=== PATIENT | male | born 1975 | race Caucasian/White ===

== ENCOUNTER 2024-07-21 13:05 | Inpatient (IN) | payer MEDICARE, SELFPAY ==
[2024-07-21] VITALS (12 sets, daily range): BP systolic 114–155; BP diastolic 64–112; PULSE 105–136; RESP 16–25; TEMP 36.6–37.1; O2SAT 96–100; BMI 32.3
--- NOTE | ~2024-07-21 | CT_ITS ---
EXAMINATION: CTA chest PE protocol DATE: 07/21/2024 15:30 INDICATION: Chest pain. TECHNIQUE: Computed tomography (CT) pulmonary angiogram of the chest was performed with 100 mL Omnipa que-350 intravenous contrast. Additional 3D reconstructions utilizing coronal maximum intensity proje ction (MIP) were performed. Automated exposure control and iterative reconstruction technique were em ployed. The dose-length product was 534.23 mGy-cm. COMPARISON: None FINDINGS: There is a saddle embolism which extends across the midline into the bilateral upper lobar pulmonary arteries and the right apical segmental and left apical and posterior segmental pulmonary arteries as well as also extending into the lingular pulmonary artery and superior lingular segmental pulmonary artery. Separate lumbar emboli are seen in the bilateral lower lobar pulmonary arteries extending int o multiple basilar segmental and subsegmental pulmonary arteries. These all appear nonocclusive with contrast extending peripherally beyond the pulmonary emboli. There is dependent atelectasis in bilate ral lower lobes. No pneumonia, pulmonary edema or pleural effusion. Small peripheral region of consol idation at the lateral basilar left lower lobe could represent a small pulmonary infarct versus addit ional atelectasis. Heart size is normal. No leftward bowing of the ventricular septum to suggest righ t heart strain. No pericardial effusion. Thoracic aorta is normal in caliber with no dissection. No p athologically enlarged thoracic lymphadenopathy. Mild bilateral gynecomastia. Visualized upper abdome n is unremarkable. Moderate thoracic spondylosis with chronic appearing mild likely physiologic anter ior wedging at T12. IMPRESSION: 1. Extensive bilateral pulmonary emboli including a saddle embolism but without evident right heart s train. Dr. Somers discussed these findings with Dr. Nolan at 3:40 PM. 2. Small region of consolidation at the lateral basilar segment of the left lower lobe which could re present atelectasis, pulmonary infarct or less likely pneumonia. Reviewed, dictated and finalized at location A. IMPRESSION: 1. Extensive bilateral pulmonary emboli including a saddle embolism but without evident right heart strain. Dr. Somers discussed these findings with Dr. Anisha patel at 3:40 PM. 2. Small region of consolidation at the lateral basilar segment of the left low er lobe which could represent atelectasis, pulmonary infarct or less likely pne umonia.
--- NOTE | ~2024-07-21 | US_ITS ---
RIGHT LOWER EXTREMITY VENOUS ULTRASOUND Ordering provider: Daniela Nolan III, DO History: . right leg pain . Comparison: None. FINDINGS: --COMMON FEMORAL: Patent and free of thrombus. Normal compressibility, phasic flow and augmentation. --PROXIMAL SUPERFICIAL FEMORAL: Patent and free of thrombus. Normal compressibility, phasic flow and augmentation. --DISTAL SUPERFICIAL FEMORAL: Patent and free of thrombus. Normal compressibility, phasic flow and au gmentation. --POPLITEAL: Thrombosed. --POSTERIOR TIBIAL: Thrombosed --: Pneumonia: Thrombosed. IMPRESSION: deep vein thrombosis. Physician: Daniela Nolan III, DO Was notified with the result of the patient at 4:00 PM on July 21, 2024 Reviewed, dictated and finalized at location A.
--- NOTE | 2024-07-21 13:14 | ECG_ITS ---
Test Date: 2024-07-21 13:38:35 Measurements Intervals [place] Rate: 124 P: 47 SD: 104 QRS: 14 QRSD: 106 T: 26 QT: 290 QTc: 417 Interpretive Statements SINUS TACHYCARDIA WITH SHORT SD INTERVAL INCOMPLETE RIGHT BUNDLE BRANCH BLOCK [90+ ms QRS DURATION, TERMINAL R IN V1/V2, 40+ ms S IN I/aVL/V4/V5/V6] ABNORMAL RHYTHM ECG No previous ECG available for comparison Electronically Signed On 07-21-2024 18:11:44 CDT by Jaja Adams
--- NOTE | 2024-07-21 13:16 | ED.LOWEXIN ---
HPI - Extremity Injury (Lower) General Chief Complaint: Extremity Injury, Lower Stated Complaint: R leg pain Time Seen by Provider: 07/21/24 13:07 History of Present Illness HPI Narrative: Pt presents with right leg pain and left lateral chest pain for a couple of days. Pt denies injury. Pt denies SOB. Pt has history of PE but is not taking blood thinners any longer. Pt denies fever or cough. Related Data Allergies Allergy/AdvReac Type Severity Reaction Status Date / Time cefuroxime Allergy Intermediate Rash Verified 07/21/24 15:11 Sulfa (Sulfonamide Allergy Intermediate Rash Verified 07/21/24 15:11 Antibiotics) Review of Systems Review of Systems: All systems reviewed & are unremarkable except as noted in HPI and below Exam Const: General: healthy appearing and no acute distress Nutritional Appearance: well nourished Orientation/consciousness: patient oriented x3 Limitations: no limitations Chest: Chest palpation & inspection: normal inspection of the chest and no tenderness Resp: Effort & Inspection: normal respiratory effort Auscultation: clear to auscultation bilaterally Cardio: Rate: tachycardic Rhythm: regular rhythm GI: GI Palp: Yes Soft to palpation and No Tenderness to palpation present (GI) Auscultation: normal bowel sounds Back/Spine/Pelvis: Back: no CVA tenderness Skin: General skin exam: normal color Rashes: no rashes Wounds: no wounds Neuro: General: patient oriented x3, moves all extremities and no focal motor deficits Cranial nerves: Yes Nystagmus not present Speech: normal speech Extrem: Other: tender right calf to palpation Psych: Mental Status: mental status grossly normal Affect: normal affect Attitude: cooperative Course Vital Signs Vital signs: Vital Signs Temperature 97.9 F 07/21/24 13:17 Pulse Rate 136 H 07/21/24 13:17 Respiratory Rate 18 07/21/24 13:17 Blood Pressure 155/112 H 07/21/24 13:17 Pulse Oximetry 96 07/21/24 13:17 Oxygen Delivery Room Air 07/21/24 13:17 Temperature 97.9 F 07/21/24 13:17 Pulse Rate 109 H 07/21/24 16:16 Respiratory Rate 25 H 07/21/24 16:16 Blood Pressure 134/90 07/21/24 16:16 Pulse Oximetry 98 07/21/24 16:16 Oxygen Delivery Room Air 07/21/24 13:17 MDM - Extremity Injury (Lower) MDM Narrative Medical decision making narrative: With PE history and lack of blood thinner with leg pain and tachycardia will need to rule out dvt and PE with labs alonzo doppler and CTA chest. Pt has large saddle PE but with some flow and no signs of right heart strain. trop is neg. Will hearinize. discussed with Lesli Loyola and agrees to admit. Lab Data 07/21/24 13:34 07/21/24 14:45 Labs: Lab Results 07/21/24 07/21/24 07/21/24 Range/Units 13:34 13:34 14:45 WBC 13.1 H (4.5-10.0) K/mm3 RBC 5.83 (4.6-6.20) M/mm3 Hgb 18.7 H (14.0-18.0) g/dL Hct 53.9 H (42.0-52.0) % MCV 92.5 (80-100) fl MCH 32.1 (26-34) pg MCHC 34.7 (32-36) g/dl RDW 13.7 (11.5-14.5) % Plt Count 250 (150-375) k/mm3 MPV 9.0 (7.4-10.4) fl Immature Gran % (Auto) 0.7 H (0-0.5) % Neut % (Auto) 72.8 (45.5-73.1) % Lymph % (Auto) 16.6 L (18.3-44.2) % [place] % (Auto) 8.3 (2.6-8.5) % Eos % (Auto) 0.9 (0-4.4) % Baso % (Auto) 0.7 (0.2-1.2) % Lymph # (Auto) 2.18 (0.9-3.2) K/mm3 [place] # (Auto) 1.1 H (0.1-0.6) K/mm3 Eos # (Auto) 0.1 (0-0.3) K/mm3 Baso # (Auto) 0.1 (0.0-0.1) K/mm3 Abs Immat Gran (auto) 0.09 H (0.00-0.031) K/mm3 Absolute Neuts (auto) 9.5 H (1.3-6.7) K/mm3 Absolute Nucleated RBC 0.000 (0.0-0.012) K/mm3 Nucleated RBC % 0.0 (0.0-0.2) % PT 13.5 (11.1-14.7) Seconds INR 1.0 APTT Cancelled 29.9 D-Dimer 6.83 H (<0.48) ug/mL Sodium 138 (137-145) mmol/L Potassium 3.9 (3.4-5.0) mmol/L Chloride 104 (98-107) mmol/L Carbon Dioxide 24 (22-30) mmol/L Anion Gap 10 (4-12) mmol/L BUN 15 (9-20) mg/dL Creatinine 0.79 (0.7-1.3) mg/dL Estim Creat Clear Calc 115 ml/min Estimated GFR > 60 (59 - ) Glucose 100 (65-110) mg/dL Calcium 9.2 (8.4-10.2) mg/dL Total Bilirubin 0.6 (0.2-1.3) mg/dL AST 26 (17-59) U/L ALT 29 (6-50) U/L Alkaline Phosphatase 58 (38-126) U/L Troponin I < 0.012 (0.000-0.034) ng/mL Total Protein 8.0 (6.3-8.2) g/dL Albumin 4.3 (3.5-5.1) g/dL Critical Care Time Critical Care Time Critical Care Time: Yes Total Critical Care Time: 35 Discharge Plan Discharge Clinical Impression: Pulmonary embolism, DVT (deep venous thrombosis) Patient Disposition: Still a Patient Condition: Critical
[2024-07-21 13:50] LABS: Basophils Absolute Auto 0.1 K/mm3 (0.0-0.1); Basophils Percent Auto 0.7 % (0.2-1.2); Eosinophils Absolute Auto 0.1 K/mm3 (0-0.3); Eosinophils Percent Auto 0.9 % (0-4.4); Hematocrit 53.9 % (42.0-52.0); Hemoglobin 18.7 g/dL (14.0-18.0); Immature Granulocyte Absolute 0.09 K/mm3 (0.00-0.031); Immature Granulocyte Percent A 0.7 % (0-0.5); Lymphocytes Absolute Auto 2.18 K/mm3 (0.9-3.2); Lymphocytes Percent Auto 16.6 % (18.3-44.2); Mean Corpuscular HGB Conc 34.7 g/dl (32-36); Mean Corpuscular Hemoglobin 32.1 pg (26-34); Mean Corpuscular Volume 92.5 fl (80-100); Monocytes Absolute Auto 1.1 K/mm3 (0.1-0.6); Monocytes Percent Auto 8.3 % (2.6-8.5); Neutrophils Absolute Auto 9.5 K/mm3 (1.3-6.7); Neutrophils Percent Auto 72.8 % (45.5-73.1); Platelet Count Result 250 k/mm3 (150-375); Red Blood Count 5.83 M/mm3 (4.6-6.20); Red Cell Distribution Width 13.7 % (11.5-14.5); White Blood Count 13.1 K/mm3 (4.5-10.0)
[2024-07-21 14:03] LABS: Prothrombin Time 13.5 Seconds (11.1-14.7)
[2024-07-21 14:04] LABS: Partial Thromboplastin Time 29.9 Seconds (22.3-36.8)
[2024-07-21 14:13] LABS: D Dimer 6.83 ug/mL (<0.48)
[2024-07-21 14:33] LABS: Troponin I < 0.012 ng/mL (0.000-0.034)
[2024-07-21 15:04] LABS: Alanine Aminotransferase 29 U/L (6-50); Albumin Level 4.3 g/dL (3.5-5.1); Alkaline Phosphatase 58 U/L (38-126); Anion Gap 10 mmol/L (4-12); Aspartate Amino Transferase 26 U/L (17-59); Bilirubin,Total 0.6 mg/dL (0.2-1.3); Blood Urea Nitrogen 15 mg/dL (9-20); Calcium 9.2 mg/dL (8.4-10.2); Carbon Dioxide 24 mmol/L (22-30); Chloride 104 mmol/L (98-107); Estimated CRCL calculation 115 ml/min; Estimated Glomerular Filt Rate > 60; Glucose 100 mg/dL (65-110); Potassium 3.9 mmol/L (3.4-5.0); Sodium 138 mmol/L (137-145)
--- NOTE | 2024-07-21 15:08 | PC.NURSE ---
CT notified that pt. is ready and there is an extra green top at bedside for them.
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
[2024-07-21] MEDS: HEPARIN SOD/D5W 100 UNITS/ML 25,000 UNITS/250 ML BAG 17.51 UNITS IV CONT (16:00)
[2024-07-21] MEDS: HEPARIN SODIUM 5,000 UNITS/ML VIAL 8000 UNITS IV PUSH (16:00)
--- NOTE | 2024-07-21 16:10 | PC.NURSE ---
Dr. Nolan at bedside updating pt. and answering pt. questions.
[2024-07-21] MEDS: HEPARIN SOD/D5W 100 UNITS/ML 25,000 UNITS/250 ML BAG 14 UNITS IV CONT (16:12)
--- NOTE | 2024-07-21 16:15 | ECG_ITS ---
Test Date: 2024-07-21 16:30:20 Measurements Intervals [place] Rate: 110 P: 56 NE: 132 QRS: 13 QRSD: 106 T: 16 QT: 317 QTc: 429 Interpretive Statements SINUS TACHYCARDIA POSSIBLE LEFT ATRIAL ENLARGEMENT [-0.1mV P-WAVE IN V1/V2] INCOMPLETE RIGHT BUNDLE BRANCH BLOCK [90+ ms QRS DURATION, TERMINAL R IN V1/V2, 40+ ms S IN I/aVL/V4/V5/V6] ABNORMAL RHYTHM ECG Compared to ECG 07/21/2024 13:38:35 Short NE interval no longer present Electronically Signed On 07-21-2024 18:33:20 CDT by Jaja Adams
[2024-07-21] MEDS: HYDROcodone/acetaminophen (*CRX) 5-325 MG TABLET 1 TAB PO ×2 (16:31→22:07)
[2024-07-21] MEDS: NICOTINE (*PBKC) 21 MG PATCH 1 PATCH TRANSDERM (16:33)
--- NOTE | 2024-07-21 16:47 | PC.NURSE ---
Dietary called and dinner tray ordered. Tray to be sent to room 213.
[2024-07-21 17:11] LABS: Troponin I < 0.012 ng/mL (0.000-0.034)
--- NOTE | 2024-07-21 17:27 | PC.NURSE ---
Patient arrived. Telemetry applied. Heparin drip confirmed at 14 ml/hr. Admission completed.
[2024-07-21 22:12] LABS: Prothrombin Time 13.5 Seconds (11.1-14.7)
[2024-07-21 22:13] LABS: Partial Thromboplastin Time 61.2 Seconds (22.3-36.8)
[2024-07-21] MEDS: diphenhydrAMINE HCl CAP 25 MG CAPSULE PO (22:38)
[2024-07-21] MEDS: HEPARIN SODIUM 5,000 UNITS/ML VIAL 3000 UNITS IV PUSH (22:38)
[2024-07-22] VITALS (18 sets, daily range): BP systolic 105–141; BP diastolic 59–86; PULSE 89–109; RESP 16–24; TEMP 36.7–37.3; O2SAT 93–100
--- NOTE | 2024-07-22 | ECHO_ITS ---
Patient Info Name: Azael Ramirez Age: 48 years : 1975 Gender: Male Ht: 68 in Wt: 212 lbs BSA: 2.18 m2 HR: 82 bpm BP: 126 / 81 mmHg Heart Rhythm: Sinus Rhythm Technical Quality: Fair Exam Date: 07/22/2024 1:42 PM Patient Status: I Admit Date: 07/21/2024 Exam Type: CA echo doppler color flow Complete two-dimensional, color flow and Doppler transthoracic echocardiogram is performed. Staff Referring Physician: Daniela Nolan III Sanitation Associate: Heena Fulton Attending Provider: Vince Aaron Summary 1. Complete two-dimensional, color flow and Doppler transthoracic echocardiogram is performed. 2. There is normal biventricular size and systolic function. 3. There are no significant valvular abnormalities. Left Ventricle The left ventricle is normal in size and systolic function. The left ventricular ejection fraction is visually estimated to be 60-65%. Right Ventricle The right ventricle is normal in size and systolic function. Left Atria The left atrium is normal size. Right Atria The right atrium is normal size. Atrial Septum The atrial septum is not well visualized. Aortic Valve The aortic valve is trileaflet and opens well. There is no aortic regurgitation. Pulmonic Valve The pulmonic valve is not well visualized. There is no color Doppler evidence of pulmonic valve regurgitation. Mitral Valve The mitral valve opens well. There is no mitral regurgitation. Tricuspid Valve The tricuspid valve is grossly normal. The insufficient tricuspid regurgitation to estimate the pulmonary pressures. Pericardium/Pleural Pericardium is normal in appearance with no evidence for significant pericardial effusion. Inferior Vena Cava The inferior vena cava is not well visualized. Aorta The aortic root at the level of the sinus of Valsalva measures 2.9 cm in diameter. Left Ventricular Outflow Tract Name Value Normal LVOT 2D LVOT Diameter 2.4 cm LVOT Doppler LVOT Peak Velocity 82 cm/s LVOT Peak Gradient 3 mmHg LVOT Mean Gradient 1 mmHg LVOT VTI 13 cm LVOT VTI/AV VTI Ratio 0.8 LVOT Stroke Volume 59 ml LVOT CO 5.5 l/min LVOT CI 2.5 l/min/m2 Pulmonic Valve Name Value Normal RVOT Doppler RVOT Peak Velocity 51 cm/s RVOT Peak Gradient 1 mmHg PV Doppler PV Peak Velocity 82 cm/s PV Peak Gradient 3 mmHg Mitral Valve Name Value Normal MV Diastolic Function MV E Peak Velocity 48 cm/s MV A Peak Velocity 48 cm/s MV E/A 1.0 MV Decel Time (PW) 169 ms MV Annular TDI MV E/e' (Septal) 7.6 MV E/e' (Lateral) 4.9 MV E/e' (Average) 6.3 Tricuspid Valve Name Value Normal TV Annular TDI TV Lateral Keeley s' Velocity 11.4 cm/s >=9.5 Aortic Valve Name Value Normal AV Doppler AV Peak Velocity 89 cm/s AV Peak Gradient 3 mmHg AV Mean Gradient 2 mmHg AV VTI 15 cm AV Area (Cont Eq VTI) 3.8 cm2 >=3.0 AV Area (Cont Eq Giorgi) 4.2 cm2 AV DI (Giorgi) 0.92 AV Regurgitation 2D LVOT Area 4.6 cm2 Ventricles Name Value Normal LV Dimensions 2D/MM IVS Diastolic Thickness (2D) 1.0 cm 0.6-1.0 LVID Diastole (2D) 4.9 cm 4.2-5.8 LVIW Diastolic Thickness (2D) 1.1 cm 0.6-1.0 LVID Systole (2D) 3.5 cm 2.5-4.0 LVOT Diameter 2.4 cm LV Mass (2D Cubed) 193.21 g 88.00-224.00 LV Mass Index (2D Cubed) 89 g/m2 49-115 Relative Wall Thickness (2D) 0.43 <=0.42 LV Fractional Shortening/Ejection Fraction 2D/MM LV Fractional Shortening (2D) 28 % 25-43 LV EF (2D Teichholz) 55 % LV Diastolic Volume (4C MOD) 133 ml LV EF (4C MOD) 61 % LV Diastolic Volume (2C MOD) 120 ml LV EF (2C MOD) 61 % LV Diastolic Volume (BP MOD) 128 ml 62-150 LV Diastolic Volume Index (BP MOD) 59 ml/m2 34-74 LV Systolic Volume (BP MOD) 51 ml 21-61 LV Systolic Volume Index (BP MOD) 23 ml/m2 11-31 LV EF (BP MOD) 60 % 52-72 LV Diastolic Length (4C) 8.4 cm LV Systolic Length (4C) 6.9 cm LV Stroke Volume (4C MOD) 81 ml Atria Name Value Normal LA Dimensions LA Volume (4C A-L) 39 ml LA Volume (BP A-L) 45 ml RA Dimensions RA Systolic Major Plummer Length (4C) 4.4 cm 2.1-2.7 RA Area (4C) 12.9 cm2 <=18.0 Report Signatures
[2024-07-22] MEDS: levoFLOXacin 750 MG/D5W 150 ML 750 MG/150 ML BAG 100 MG IVPB (00:13)
[2024-07-22] MEDS: guaiFENesin/DEXTROMETHORPHAN 10 ML UDC PO ×5 (00:14→21:41)
[2024-07-22 05:05] LABS: Basophils Absolute Auto 0.1 K/mm3 (0.0-0.1); Basophils Percent Auto 0.7 % (0.2-1.2); Eosinophils Absolute Auto 0.2 K/mm3 (0-0.3); Hematocrit 50.4 % (42.0-52.0); Lymphocytes Absolute Auto 2.37 K/mm3 (0.9-3.2); Lymphocytes Percent Auto 22.7 % (18.3-44.2); Mean Corpuscular HGB Conc 33.7 g/dl (32-36); Mean Corpuscular Hemoglobin 31.7 pg (26-34); Mean Platelet Volume 8.9 fl (7.4-10.4); Monocytes Absolute Auto 0.9 K/mm3 (0.1-0.6); Neutrophils Absolute Auto 6.8 K/mm3 (1.3-6.7); Neutrophils Percent Auto 64.6 % (45.5-73.1); Platelet Count Result 243 k/mm3 (150-375); Red Blood Count 5.36 M/mm3 (4.6-6.20); Red Cell Distribution Width 13.7 % (11.5-14.5); White Blood Count 10.5 K/mm3 (4.5-10.0)
[2024-07-22 05:20] LABS: Anion Gap 8 mmol/L (4-12); Blood Urea Nitrogen 14 mg/dL (9-20); Calcium 8.7 mg/dL (8.4-10.2); Carbon Dioxide 26 mmol/L (22-30); Chloride 103 mmol/L (98-107); Estimated CRCL calculation 141 ml/min; Estimated Glomerular Filt Rate > 60; Glucose 101 mg/dL (65-110); Potassium 3.9 mmol/L (3.4-5.0); Sodium 137 mmol/L (137-145)
[2024-07-22 05:22] LABS: Partial Thromboplastin Time 90.9 Seconds (22.3-36.8)
[2024-07-22] MEDS: HYDROcodone/acetaminophen (*CRX) 5-325 MG TABLET 1 TAB PO ×2 (08:24→17:36)
[2024-07-22] MEDS: DOCUSATE SODIUM 100 MG CAPSULE PO ×2 (08:25→17:32)
[2024-07-22] MEDS: NICOTINE (*PBKC) 21 MG PATCH 1 PATCH TRANSDERM (08:25)
[2024-07-22] MEDS: HEPARIN SOD/D5W 100 UNITS/ML 25,000 UNITS/250 ML BAG 16 UNITS IV CONT (08:34)
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
[2024-07-22] MEDS: HEPARIN SODIUM 5,000 UNITS/ML VIAL 6500 UNITS IV PUSH (14:45)
[2024-07-22] MEDS: diphenhydrAMINE HCl CAP 25 MG CAPSULE PO (17:37)
[2024-07-22 21:10] LABS: Partial Thromboplastin Time 81.8 Seconds (22.3-36.8)
[2024-07-22] MEDS: HEPARIN SOD/D5W 100 UNITS/ML 25,000 UNITS/250 ML BAG 18 UNITS IV CONT (22:46)
[2024-07-23] VITALS (12 sets, daily range): BP systolic 116–133; BP diastolic 70–85; PULSE 84–124; RESP 16–20; TEMP 36.8–37; O2SAT 95–98
[2024-07-23] MEDS: guaiFENesin/DEXTROMETHORPHAN 10 ML UDC PO ×4 (00:05→11:52)
[2024-07-23] MEDS: levoFLOXacin 750 MG/D5W 150 ML 750 MG/150 ML BAG 100 MG IVPB (00:05)
[2024-07-23 05:03] LABS: Hematocrit 47.1 % (42.0-52.0); Mean Corpuscular Hemoglobin 31.9 pg (26-34); Mean Corpuscular Volume 93.8 fl (80-100); Mean Platelet Volume 8.9 fl (7.4-10.4); Platelet Count Result 265 k/mm3 (150-375); Red Blood Count 5.02 M/mm3 (4.6-6.20); Red Cell Distribution Width 13.6 % (11.5-14.5); White Blood Count 9.9 K/mm3 (4.5-10.0)
[2024-07-23 05:17] LABS: Anion Gap 10 mmol/L (4-12); Blood Urea Nitrogen 12 mg/dL (9-20); Calcium 8.9 mg/dL (8.4-10.2); Carbon Dioxide 24 mmol/L (22-30); Chloride 102 mmol/L (98-107); Estimated CRCL calculation 135 ml/min; Estimated Glomerular Filt Rate > 60; Glucose 109 mg/dL (65-110); Potassium 4.1 mmol/L (3.4-5.0); Sodium 136 mmol/L (137-145)
[2024-07-23 05:20] LABS: Partial Thromboplastin Time 86.2 Seconds (22.3-36.8)
[2024-07-23] MEDS: RIVAROXABAN 15 MG TABLET PO (09:55)
[2024-07-23] MEDS: NICOTINE (*PBKC) 21 MG PATCH 1 PATCH TRANSDERM (09:55)
[2024-07-23] MEDS: DOCUSATE SODIUM 100 MG CAPSULE PO (09:55)
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
--- NOTE | 2024-07-23 12:56 | PCRCNOTE ---
HOME O2 EVAL COMPLETE, NO REQUIREMENTS
== END 2024-07-23 13:28 | disposition home or self-care (01) | DRG 175 ==
LOC: ANHED 15:57 → ANHIMU 16:26
PROVIDERS: General Practice; Nurse Practitioner Gerontology; Admitting Provider Internal Medicine; Emergency Provider Emergency Medicine; PCP Family Medicine; Visit Provider Internal Medicine
DX: I26.92 Saddle embolus of pulmonary artery without acute cor pulmonale (principal); J18.9 Pneumonia, unspecified organism; I82.431 Acute embolism and thrombosis of right popliteal vein; I82.441 Acute embolism and thrombosis of right tibial vein; I26.99 Other pulmonary embolism without acute cor pulmonale; L27.0 Generalized skin eruption due to drugs and medicaments taken internally; F17.210 Nicotine dependence, cigarettes, uncomplicated; Z86.711 Personal history of pulmonary embolism
CPT/HCPCS: 36415; 71275; 80048; 80053; 84484; 85025; 85027; 85380; 85610; 85730; 93005; 93306; 93971; 94618; 96374; 99291; A9270; J1644; J1956; Q9967